=== PATIENT | male | born 1955 | race Caucasian/White ===

== ENCOUNTER → 2018-06-28 | Outpatient (CLI) | payer BC ==
--- NOTE | 2018-06-28 15:49 | PCVCIMAG ---
EXAM: BILATERAL CAROTID DUPLEX INDICATION: Carotid Occlusive Disease. FINDINGS: Doppler Measurements (centimeters per second): RIGHT: Peak CCA-77, Peak ECA-82, Diastolic ICA-22, Peak ICA-56, ICA/CCA Ratio-0.7. LEFT: Peak CCA-88, Peak ECA-63, Diastolic ICA-22, Peak ICA-53, ICA/CCA Ratio-0.6. RIGHT CAROTID: The carotid bulb has minimal plaque. The proximal internal carotid artery shows no significant stenosis. The common carotid artery shows no significant stenosis. The external carotid artery shows no significant stenosis. LEFT CAROTID: The carotid bulb has minimal plaque. The proximal internal carotid artery shows no significant stenosis. The common carotid artery shows no significant stenosis. The external carotid artery shows no significant stenosis. Antegrade flow in both vertebral arteries. IMPRESSION: No significant stenosis of the right internal carotid artery with minimal plaque. No significant stenosis of the left internal carotid artery with minimal plaque. LOC:[id number]
== END | disposition home or self-care (01) ==
LOC: PCVCIMAG 15:39
PROVIDERS: ATTEND Internal Medicine Cardiovascular Disease
DX: I65.23 Occlusion and stenosis of bilateral carotid arteries (principal)
CPT/HCPCS: 93880

== ENCOUNTER → 2018-06-30 | Outpatient (CLI) | payer BC ==
--- NOTE | 2018-06-30 16:26 | PCVCIMAG ---
APPROVED REPORT Study performed: 06/30/2018 14:23:55 Exam: Stress Echocardiogram Indication: Elevated CA Score, Dyspnea Patient Location: Echo lab Stress Nurse: Soco Balderrama RN Status: routine Ht: 5 ft 10 in HR: 86 bpm BP: 124/80 mmHg Rhythm: NSR Medical History Medical History: HTN, Hyperlipidemia Procedure The patient underwent an Exercise Stress Test using the Brain Protocol. Blood pressure, heart rate, and EKG were monitored. An Echocardiogram was performed by plastic process technician in four stages in quad fashion. At peak stress, four selected images were obtained and placed side by side with resting images for comparison. Stress Test Details Stress Test: Exercise stress testing was performed using a Brain protocol. HR Resting HR: 86 bpmMax Heart Rate (APMHR): 157 bpm Max HR Achieved: 179 bpmTarget HR (85% APMHR): 133 bpm % of APMHR: 114 Recovery HR: 115 bpm HR response to stress: Normal HR response to stress BP Resting BP: 124/80 mmHg Max BP: 178/74 mmHg Recovery BP: 160/80 mmHg BP response to stress: Normal blood pressure response to stress. ECG Resting ECG: Sinus Rhythm Stress ECG: Sinus Rhythm Arrhythmia: APC's, VPC's Recovery ECG: Sinus Rhythm Recovery Arrhythmia: APC Clinical Reason for Termination: Maximal effort, Dyspnea Exercise duration: 11 min 02 sec Highest Stage Achieved: Stage 4: 4.2 mph at 16% grade. Exercise capacity: 13.70 METs Overall Exercise Capacity for Age: Good Stress ECG Conclusion ECG: Non-ischemic Clinical: Non-ischemic Pre-Stress Echo The resting Echocardiogram showed normal left ventricular contractility with an estimated Ejection Fraction of about >55%. Normal wall motion in all segments on baseline images. Post-Stress Echo The stress Echocardiogram showed normal left ventricular contractility with an estimated Ejection Fraction of about 60-65%. Normal augmentation of wall motion in all segments on post stress images. Clinical No clinical or ECG evidence for ischemia. Conclusion Clinical Response: Non-ischemic Exercise Capacity: Superior Stress ECG Response: Non-ischemic Stress Echo Images: Non-ischemic The left ventricle is normal in size and wall thickness in both the rest and stress images. Other Information Study Quality: Adequate <Conclusion> The left ventricle is normal in size and wall thickness in both the rest and stress images.
== END | disposition home or self-care (01) ==
LOC: PCVCIMAG 14:27
PROVIDERS: ATTEND Internal Medicine Cardiovascular Disease
DX: R93.1 Abnormal findings on diagnostic imaging of heart and coronary circulation (principal); R06.09 Other forms of dyspnea
CPT/HCPCS: 93325; 93351